=== PATIENT | female | born 1935 | race Caucasian/White ===

== ENCOUNTER 2025-02-23 19:16 | Emergency (ER) | payer OTHER ==
[2025-02-23] MEDS ORDERED: DIPHTH,PERTUSS(ACELL),TET 0.5 ML DISP.SYRIN IM ONE (20:55)
[2025-02-23] MEDS: DIPHTH,PERTUSS(ACELL),TET 0.5 ML DISP.SYRIN IM ONE (20:57)
[2025-02-23 21:39] VITALS: BP 151/86; PULSE 78; RESP 18; TEMP 97.2; BMI 26.5
== END 2025-02-23 21:47 | disposition home or self-care (01) ==
LOC: FER 19:16
PROC: 0HQFXZZ Repair Right Hand Skin, External Approach (ICD-10-PCS; principal; 2025-02-23)
PROC: 3E0234Z Introduction of Serum, Toxoid and Vaccine into Muscle, Percutaneous Approach (ICD-10-PCS; 2025-02-23)
DX: S61.211A Laceration without foreign body of left index finger without damage to nail, initial encounter (principal); Z23 Encounter for immunization; W26.0XXA Contact with knife, initial encounter
CPT/HCPCS: 12001-25; 90471; 90715; 99284-25